=== PATIENT | male | born 2000 | race Two or more races ===

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

== ENCOUNTER 2020-12-14 20:55 | Emergency (ER) | payer MEDICAID ==
[~2020-12-14] VITALS: Ht 180.3 cm; Wt 104.3 kg
[2020-12-15 07:31] VITALS: BP 132/87
== END 2020-12-15 07:37 | disposition home or self-care (01) ==
LOC: ER 20:56
DX: K61.0 Anal abscess (principal)
CPT/HCPCS: 76881